=== PATIENT | female | born 1955 | race American Indian/Alaskan Native ===

== ENCOUNTER 2017-12-15 00:04 | Emergency (ER) | payer OTHER ==
[2017-12-15 04:14] VITALS: BP 185/95
[2017-12-15] MEDS ORDERED: FLEXERIL PO ONE (07:01)
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
[2017-12-15] MEDS ORDERED: NORCO 5/325 ONE (07:04)
[2017-12-15] MEDS ORDERED: NORCO 5/325 PO ONE (07:07)
== END 2017-12-15 07:17 | disposition home or self-care (01) ==
LOC: ED 00:04
DX: S16.1XXA Strain of muscle, fascia and tendon at neck level, initial encounter (principal); R03.0 Elevated blood-pressure reading, without diagnosis of hypertension; E11.9 Type 2 diabetes mellitus without complications; V87.7XXA Person injured in collision between other specified motor vehicles (traffic), initial encounter; Y93.89 Activity, other specified; Y99.8 Other external cause status; Y92.410 Unspecified street and highway as the place of occurrence of the external cause
CPT/HCPCS: 99282